=== PATIENT | male | born 1980 | race African-American/Black ===

== ENCOUNTER 2021-02-25 06:19 | Observation (INO) ==
[2021-02-25] MEDS ORDERED: CeFAZolin Syr 3,000MG/30 ML 3,000 MG/30 ML SYRINGE IVPB ONE (06:38)
[2021-02-25] MEDS ORDERED: Ringers Solution, Lactated 1,000 ML IVC SCH (06:45)
[2021-02-25] MEDS ORDERED: *HR* HYDROcodone/Acet 7.5/325 mg TABLET PO PRN (07:14)
[2021-02-25] MEDS ORDERED: Ondansetron 4 MG/2 ML VIAL IVP PRN ×2 (07:14→14:25)
[2021-02-25] MEDS ORDERED: Promethazine 6.25 MG in Water for inj. (sterile) 20 ML IVPB PRN (07:14)
[2021-02-25] MEDS ORDERED: *HR* HYDROmorphone PF 0.5 MG/0.5 ML SYRINGE IVP PRN (07:14)
[2021-02-25] MEDS ORDERED: *HR* Labetalol 20 MG/4 ML SYRINGE IVP PRN (07:14)
[2021-02-25] MEDS ORDERED: *HR* Rocuronium Bromide 50 MG/5 ML VIAL ONE (07:36)
[2021-02-25] MEDS ORDERED: Lidocaine HCL 4 ML Topical Solution (Laryng-O-Jet Kit Sterile Pak) TP ONE (07:36)
[2021-02-25] MEDS ORDERED: Ondansetron 4 MG/2 ML VIAL ONE (07:36)
[2021-02-25] MEDS ORDERED: Lidocaine -MPF 2% 2 ML VIAL ONE (07:36)
[2021-02-25] MEDS ORDERED: *HR* Succinylcholine 200 MG/10 ML VIAL IVP ONE (07:36)
[2021-02-25] MEDS ORDERED: *HR* Remifentanil 1 MG VIAL IVP ONE ×3 (07:37→11:35)
[2021-02-25] MEDS ORDERED: *HR* FentaNYL (PF) 100 MCG/2 ML VIAL ONE (07:41)
[2021-02-25] MEDS ORDERED: *HR* Propofol 200 MG/20 ML VIAL IVP ONE ×4 (07:41→13:00)
[2021-02-25] MEDS ORDERED: Bacitracin 50,000 UNIT, Sodium Chloride IRRigation 1,000 ML IR ONE (08:15)
[2021-02-25] MEDS ORDERED: Sugammadex Sodium 200 MG/2 ML VIAL IV ONE (10:01)
[2021-02-25] MEDS ORDERED: *HR* Phenylephrine 10 MG/ML VIAL ONE (10:05)
[2021-02-25] MEDS ORDERED: EPHEDrine 50 MG/ML VIAL ONE (10:21)
[2021-02-25] MEDS ORDERED: *HR* HYDROMORPHONE 2 MG/ML VIAL ONE ×2 (10:42→12:52)
[2021-02-25] MEDS ORDERED: Acetaminophen 325 MG TABLET PO PRN (14:25)
[2021-02-25] MEDS ORDERED: Naloxone 0.4 MG/ML INJ IVP PRN (14:25)
[2021-02-25] MEDS: *HR* OxyCODONE Immed Rel 5 MG TABLET PO PRN (15:20)
[2021-02-25] MEDS: Ringers Solution, Lactated 1,000 ML IVC SCH (15:24)
[2021-02-25] MEDS: ceFAZolin 3,000 MG in 0.9 % Sodium Chloride 100 ML IVPB SCH (16:19)
[2021-02-25] MEDS: *HR* HYDROcodone/Acet 5/325 mg TABLET PO PRN (20:08)
[2021-02-26] MEDS: ceFAZolin 3,000 MG in 0.9 % Sodium Chloride 100 ML IVPB SCH (00:42)
[2021-02-26] MEDS: *HR* HYDROcodone/Acet 5/325 mg TABLET PO PRN ×3 (02:37→15:39)
[2021-02-26] MEDS: Ringers Solution, Lactated 1,000 ML IVC SCH ×2 (07:51→10:52)
[2021-02-26] MEDS: tiZANidine 4 MG TABLET PO PRN ×2 (13:06→19:34)
[2021-02-26] MEDS: *HR* OxyCODONE Immed Rel 5 MG TABLET PO PRN ×2 (17:40→22:21)
[2021-02-27] MEDS: tiZANidine 4 MG TABLET PO PRN ×2 (01:34→09:06)
[2021-02-27] MEDS: *HR* OxyCODONE Immed Rel 5 MG TABLET PO PRN ×2 (03:14→12:18)
[2021-02-27] MEDS: *HR* HYDROcodone/Acet 5/325 mg TABLET PO PRN (06:55)
[2021-02-27 12:09] VITALS: BP 120/75
== END 2021-02-27 14:15 | disposition home or self-care (01) ==
LOC: SAMDAY 06:19 → 3NENU 06:19
PROVIDERS: ADMIT Orthopaedic Surgery Orthopaedic Surgery of the Spine; ATTEND Orthopaedic Surgery Orthopaedic Surgery of the Spine